=== PATIENT | female | born 1945 | race Caucasian/White ===

== ENCOUNTER 2022-12-31 09:44 | Emergency (ER) | payer MEDICARE, SELFPAY ==
--- NOTE | ~2022-12-31 | XR_ITS ---
EXAMINATION: XR chest 2V DATE: 12/31/2022 10:33 INDICATION: Shortness of breath. COVID-19 positive. TECHNIQUE: Frontal and lateral views of the chest were obtained. COMPARISON: None. FINDINGS: There is no pneumonia, pleural effusion, or pneumothorax. The heart size is normal. IMPRESSION: 1. No acute cardiopulmonary disease. Reviewed, dictated and finalized at location A.
[2022-12-31 10:10] VITALS: BP 99/62; PULSE 102; RESP 16; TEMP 36.9; O2SAT 97
--- NOTE | 2022-12-31 10:29 | ED.URI ---
HPI - URI/Sore Throat General Chief Complaint: Upper Respiratory Infection Stated Complaint: tired,balance off, respiration problems Time Seen by Provider: 12/31/22 10:19 Source: patient, family and RN notes reviewed Mode of arrival: ambulatory Limitations: no limitations History of Present Illness HPI Narrative: Patient presents today with a 4 day history of cough, fatigue, fever, chills, and shortness of breath. She also reports some, ?balance issues? for the past 3 weeks. She has been taking Tylenol with some relief. Reports history of asthma, COPD, sleep apnea. Patient has been recently traveling on an airplane. She has been vaccinated for COVID-19, but not had the most recent booster. Patient is poor historian for her HPI. Related Data Home Medications Medication Instructions Recorded Confirmed BuSpar 5 mg PO DAILY 12/31/22 12/31/22 amitriptyline 75 mg tablet 75 mg PO HS 12/31/22 12/31/22 bupropion HCl 150 mg 24 hr tablet, 150 mg PO QAM 12/31/22 12/31/22 extended release cyclobenzaprine 5 mg PO TID PRN Back Pain 12/31/22 12/31/22 fluticasone propionate 50 2 spray intranasal DAILY 12/31/22 12/31/22 mcg/actuation nasal spray,suspension furosemide 20 mg tablet (Lasix) 20 mg PO DAILY PRN Edema 12/31/22 12/31/22 gabapentin 100 mg tablet 100 mg PO HS DIRECTED 12/31/22 12/31/22 hydroxyzine HCl 25 mg tablet 25 mg PO QID PRN Allergic Symptoms 12/31/22 12/31/22 montelukast 10 mg tablet 10 mg PO DAILY 12/31/22 12/31/22 (Singulair) naltrexone 50 mg PO DIRECTED 12/31/22 12/31/22 omeprazole 20 mg tablet,delayed 20 mg PO DAILY 12/31/22 12/31/22 release solifenacin 5 mg tablet 1 mg PO DIRECTED 12/31/22 12/31/22 sulindac 200 mg tablet 180 mg PO BID 12/31/22 12/31/22 Allergies Allergy/AdvReac Type Severity Reaction Status Date / Time SOME ANTIBIOTICS Allergy Rash Uncoded 12/31/22 10:23 FLOWERY SCENTS AdvReac Other Uncoded 12/31/22 10:29 Review of Systems Review of Systems: CONSTITUTIONAL: Denies body aches, or sweats.+ chills, fever, fatigue EYES: Denies visual changes, redness, or discharge. ENT: Denies rhinorrhea, congestion, sore throat, or otalgia. CARDIOVASCULAR: Denies chest pain, palpitations, or edema. RESPIRATORY: + cough, shortness of breath GASTROINTESTINAL: Denies abdominal pain, nausea, vomiting, or diarrhea. GENITOURINARY: Denies dysuria or hematuria. SKIN: Denies rash, itching, or wounds. MUSCULOSKELETAL: Denies back pain, joint pain, or myalgia. NEUROLOGIC: Denies headache, numbness, tingling, or weakness. PSYCH: Denies depression or anxiety. [facility] Past Medical History Medical History (Updated 12/31/22 @ 11:06 by Tamar Fisher, [facility], ) Asthma COPD (chronic obstructive pulmonary disease) Comments At time of signature, I have reviewed and agree with nursing past medical, surgical, social and family history unless otherwise noted. Please see nursing chart for further information. There is no relevant family history pertinent to the presenting complaint Exam Narrative: GENERAL: Well-appearing, well-nourished, and in no acute distress. HEAD: Normocephalic, atraumatic. EYES: EOMI. No redness or drainage. Conjunctivae normal. ENT: Mucous membranes pink and moist. Nares clear. No rhinorrhea. TMs normal bilaterally. Throat normal. Uvula midline. NECK: Normal AROM. Supple. No lymphadenopathy. CHEST: No respiratory distress. Clear to auscultation. HEART: Regular rate and rhythm. No murmur appreciated. EXTREMITIES: Normal range of motion. No edema. SKIN: Warm, dry, no rash. Capillary refill normal. Normal skin turgor. NEURO: No focal deficits. Alert and oriented x3. Gait steady. PSYCH: Normal affect. No signs of depression or anxiety. Course Course Level of Care: Express Care Visit Vital Signs Vital signs: Vital Signs Temperature 98.4 F 12/31/22 10:10 Pulse Rate 102 H 12/31/22 10:10 Respiratory Rate 16 12/31/22 10:10 Blood Pressure 99/62
== END 2022-12-31 11:12 | disposition home or self-care (01) ==
PROVIDERS: Emergency Provider Nurse Practitioner; PCP Nurse Practitioner Family
DX: U07.1 COVID-19 (principal); J44.9 Chronic obstructive pulmonary disease, unspecified
CPT/HCPCS: 71046; 87426; 87804; 99213; C9803; G0463